=== PATIENT | female | born 1990 | race Two or more races ===

== ENCOUNTER 2024-07-27 16:31 | Emergency (ER) | payer OTHER ==
[~2024-07-27] VITALS: Ht 160 cm; Wt 140.6 kg
[2024-07-27 17:28] VITALS: BP 161/99; TEMP 99.9
[2024-07-27] MEDS ORDERED: ACET-868 PO (18:51)
[2024-07-27] MEDS ORDERED: ONDA4TAB5 PO (18:51)
[2024-07-27 19:06] VITALS: O2SAT 98
== END 2024-07-27 19:06 | disposition home or self-care (01) ==
LOC: ER 16:38
DX: A08.4 Viral intestinal infection, unspecified (principal); R19.7 Diarrhea, unspecified